=== PATIENT | female | born 1940 | race Caucasian/White ===

== ENCOUNTER 2016-07-01 17:44 | Observation (INO) | payer BC, MEDICARE ==
[2016-07-01 18:30] LABS: ABSOLUTE NEUTROPHIL COUNT 6.1 K/mm3 (1.8-7.7); BASO % 0.2 % (0.2-1.0); EOS % 0.1 % (0.9-2.9); HEMATOCRIT 35.6 % (37.0-47.0); HEMOGLOBIN 11.8 gm/l (12.0-16.0); IMM NEUT% 0.2 % (0-1); LYMPH # 1.3 (1.0-4.8); LYMPH % 14.6 % (15-45); MEAN CELL VOLUME 91.3 fl (81.0-99.0); MEAN CORPUSCULAR HEMOGLOBIN 30.3 pg (27.0-31.0); MEAN CORPUSCULAR HGB CONC 33.1 g/dl (33.0-37.0); MEAN PLATELET VOLUME 10.1 fl (7.4-10.4); MONO # 1.2 (0.0-0.8); MONO % 14.3 % (4-12); NEUT % 70.6 % (43-75); PLATELET COUNT 171 K/mm3 (130-400); RED CELL DISTRIBUTION WIDTH 12.3 % (11.5-14.5)
[2016-07-01 18:45] LABS: SPECIFIC GRAVITY 1.025 (1.001-1.030); URINE BILIRUBIN NEGATIVE (NEGATIVE); URINE BLOOD 2+ (NEGATIVE); URINE GLUCOSE (UA) NEGATIVE (NEGATIVE); URINE LEUKOCYTE ESTERASE NEGATIVE (NEGATIVE); URINE NITRITE NEGATIVE (NEGATIVE); URINE PROTEIN 1+ (NEGATIVE); URINE UROBILINOGEN NORMAL (0-1 mg/dl)
[2016-07-01 18:47] LABS: URINE APPEARANCE CLEAR; URINE COLOR DARK YELLOW
[2016-07-01 18:54] LABS: ALB/GLOB RATIO 1.2 (>1.0); ALBUMIN 3.7 gm/dL (3.5-5.7); CALCIUM 9.6 mg/dL (8.6-10.3)
[2016-07-01 18:54] LABS: URINE EPITHELIAL CELLS 0 /hpf; URINE MUCUS 2+; URINE RBC 0-2 /hpf; URINE WBC 0-2 /hpf
[2016-07-01 18:55] LABS: URINE BACTERIA 1+
[2016-07-01 18:56] LABS: TROPONIN I 0.04 ng/ml (0.0-0.06)
[2016-07-01 19:00] LABS: CKMB ISOENZYME 2.9 ng/ml (0.6-6.3)
--- NOTE | 2016-07-01 19:26 | CT ---
HEAD W/O CON: 07/01/2016 6:25 PM CLINICAL HISTORY: Weakness, difficulty ambulating. COMPARISON: 12/31/2005 TECHNIQUE: Contiguous axial 5 mm images from skull base to the vertex were obtained without IV contrast. Sagittal and coronal reformations with bone algorithm images were also obtained at this time. CT DI:: 51.7 DLP: 938.9 FINDINGS: Infarct: None Extra axial spaces: Normal in size and morphology for the patient's age. Hemorrhage: None. Ventricular system: Normal in size and morphology for the patient's age. Basal cisterns: Normal. Cerebral parenchyma: Continued moderate atrophy is present with small vessel occlusive changes in the periventricular white matter. Physiologic calcifications are noted within the right basal ganglia. Midline shift: None. Cerebellum: Normal. Brainstem: Normal. OTHER: Calvarium: Normal. Vascular system: Normal. Visualized Paranasal sinuses and Mastoid air cells: Clear. Visualized Orbits and regional soft tissues: Normal. IMPRESSION: No acute intracranial process. Moderate atrophy and small vessel occlusive changes are again noted. Report was uploaded to the electronic medical record at approximately 1922 hours on 07/01/2016
[2016-07-01] MEDS ORDERED: CEFTRIAXONE 1 GRAM DUPLEX 50 ML IV ONE (20:49)
[2016-07-01] MEDS ORDERED: BISACODYL 10 MG SUP PR PRN (21:48)
[2016-07-01] MEDS ORDERED: SODIUM CHLORIDE 0.9% 1,000 ML IV SCH (21:48)
[2016-07-01] MEDS ORDERED: MAGNESIUM HYDROXIDE 30 ML UDCUP PO PRN (21:48)
[2016-07-01] MEDS ORDERED: ACETAMINOPHEN 325 MG TABLET PO PRN (21:48)
[2016-07-01] MEDS ORDERED: BISACODYL 5 MG TABLET.EC PO PRN (21:48)
[2016-07-01] MEDS ORDERED: SODIUM CHLORIDE 0.9% 100 ML IV PRN (21:48)
[2016-07-01] MEDS ORDERED: BLISTEX LIPSTICK 1 EACH TP PRN (21:48)
[2016-07-01] MEDS ORDERED: MENTHOL/CETYLPYRD 1 EACH LOZENGE PO PRN (21:48)
[2016-07-01 21:50] VITALS: BMI 24.5
[2016-07-01] MEDS ORDERED: PUMP TUBING ONE (22:11)
[2016-07-01] MEDS: DIVALPROEX SODIUM 125 MG PO SCH (22:46)
[2016-07-01] MEDS: CLONAZEPAM 0.5 MG TABLET PO SCH (22:46)
[2016-07-01] MEDS: DOCUSATE SODIUM 100 MG CAPSULE PO SCH (22:47)
[2016-07-02 07:01] LABS: ABSOLUTE NEUTROPHIL COUNT 3.6 K/mm3 (1.8-7.7); EOS # 0.1 (0.0-0.5); EOS % 1.2 % (0.9-2.9); HEMATOCRIT 33.4 % (37.0-47.0); IMM NEUT% 0.5 % (0-1); LYMPH # 1.2 (1.0-4.8); LYMPH % 21.3 % (15-45); MEAN CELL VOLUME 92.3 fl (81.0-99.0); MEAN CORPUSCULAR HEMOGLOBIN 30.4 pg (27.0-31.0); MEAN CORPUSCULAR HGB CONC 32.9 g/dl (33.0-37.0); MEAN PLATELET VOLUME 9.8 fl (7.4-10.4); MONO # 0.7 (0.0-0.8); MONO % 12.7 % (4-12); NEUT % 64.3 % (43-75); PLATELET COUNT 143 K/mm3 (130-400); RED CELL DISTRIBUTION WIDTH 12.1 % (11.5-14.5)
--- NOTE | 2016-07-02 07:35 | HP ---
Rocio Lugo [id number] CHIEF COMPLAINT: Weakness. HISTORY OF PRESENT ILLNESS: The patient is a 76-year-old female with past medical history significant for dementia brought to the [facility] Emergency Department by her family due to concerns about increased weakness which started today. She has normally been ambulatory, but today had trouble walking without much more assistance than usually and had a period of being less coherent than usual as well as some diaphoresis. This occurred this afternoon around 4:30 and family brought her in for evaluation. Her workup in the emergency department was fairly unremarkable, but she did have some bacteriuria and was thought to have a urinary tract infection causing her symptoms. She was referred to the hospitalist service for observation due to the decline in her usual level of functioning. The patient recently moved to [facility] on June 26. Since the move she has been having some more difficulty with transfers and has recently been encouraged to use a four wheeled walker. Prior to that, she was independent at home with her , but her care needs have become progressively higher over the last year. REVIEW OF SYSTEMS: No possible given the patient's advanced state of dementia. PAST MEDICAL HISTORY: Significant for a remote history of coronary artery disease approximately 15 years ago described as mild. She was last hospitalized about 7 years ago due to side effects from Risperdal. She has had senile dementia for the past 8 years. She has a history of severe depression with anxiety and has had history of suicide attempts in the past. Her psychiatric illness has stabilized. Family notes that she has had hallucinations over the last 6 months, but they do not seem to distress the patient or cause behavioral disturbance. She has had a history of chronic essential hypertension and no other chronic medical problems. No prior history of stroke. She has had a little bit of rosacea according to her medical record. PAST SURGICAL HISTORY: Significant for a prior cholecystectomy and skin cancer removal. ALLERGIES: RISPERDAL. CURRENT MEDICATIONS: Consist of: 1. Abilify 15 mg every morning. 2. Enteric coated aspirin 81 mg daily. 3. Buspirone 7.5 mg daily and 15 mg at bedtime. 4. Calcium with vitamin D 500/200 units half a tablet twice a day. 5. Vitamin D 3000 units by mouth daily. 6. Celexa 40 mg by mouth daily. 7. Klonopin 0.25 mg by mouth twice daily. 8. Diltiazem extended release 360 mg at bedtime. 9. Depakote 125 mg twice daily plus 250 mg at bedtime. 10. Hydrochlorothiazide 12.5 mg by mouth daily. 11. Lisinopril 40 mg by mouth daily. 12. Tylenol 650 mg every 4 hours as needed for pain. 13. Dulcolax 10 mg as needed for constipation if no bowel movement after three days and sion-d-rwsrubry fails. 14. Nwxt-u-nubkxgmm 30 mL daily as needed for constipation manifested by no bowel movement in 3 days. 15. Imodium 2 to 4 mg as needed for diarrhea. CODE STATUS: Not been formerly documented. I attempted to discuss this with the family, but they were not comfortable completing a POLST form at this time. Her indicates that she would not want to be on tube feedings, but they are not ready to formerly make a decision about life support or advanced life support measures at this time. FAMILY HISTORY: Significant for a mother who had lupus and a father who had a myocardial infarction and coronary artery disease. SOCIAL HISTORY: Patient is . She has two children a son and a daughter who are both involved in her care and live locally. Her is present at the bedside and is adjusting to living alone at home since his has moved into [facility]. There is no history of tobacco use. She has had a history of drinking a small amount of wine daily, but does not do so any longer. Her primary care provider is Dr. Chris Oro as her former primary care provider, Dr. Kp Rosado has retired. PHYSICAL EXAMINATION: VITAL SIGNS: Showed temperature of 98.8, oxygen saturation 95% on room air, respiratory rate 18, pulse is 80, blood pressure was 150/67, body mass index was 24.5 with a weight of 73.1 kg. GENERAL: This is a well developed, well nourished elderly female in no acute distress. HEENT: Shows pupils equal, round, and reactive to light. Extraocular movements are intact. No oral lesions are present. NECK: Supple without lymphadenopathy or thyromegaly. LUNGS: Clear to auscultation bilaterally. CARDIOVASCULAR: Reveals a regular rate and rhythm without a murmur. ABDOMEN: Soft, nontender, nondistended with positive bowel sounds. EXTREMITIES: Show no peripheral edema. DIAGNOSTICS: A 12-lead EKG shows sinus rhythm with frequent supraventricular premature complexes. There is also evidence of a moderate intraventricular conduction delay rate of 91 beats per minute. I do not have any diagnostic imaging reports available. LABORATORY STUDIES: Showed a white blood cell count of 8.7, hemoglobin of 11.8, and a platelet count of 171,000. Chemistry profile shows sodium 138, potassium 3.7, chloride 97, carbon dioxide 31, BUN 30, creatinine 1.2, glucose 95. Liver function tests are normal. Cardiac enzymes are negative. Urinalysis shows concentrated urine, specific gravity of 1.025, 1+ protein, trace ketones, 2+ blood, 0-2 red cells, 0-2 white cells, 1+ bacteria and 0 epithelial cells, nitrite and leukocyte esterase are both negative. ASSESSMENT: The patient has generalized weakness, unclear etiology. She does have bacteriuria and this may represent a urinary tract infection causing her weakness. She also has senile dementia and her weakness may just be progression of this illness. She has a history of chronic essential hypertension and coronary artery disease as well as chronic depression with anxiety. These medical problems appear to be stable. She meets criteria for observation. She has been given Rocephin in the emergency department. A urine culture is pending. Will get physical therapy and occupational therapy to evaluate and treat the patient in the morning. Work with care management and anticipate likely return to her assisted living facility tomorrow if possible. Further treatment and recommendations will depend on her hospital course. Venous thromboembolism risk is considered low. JOB: [id number] CC: Dr. Chris Oro
[2016-07-02] MEDS: CITALOPRAM HYDROBROMIDE 20 MG TABLET PO SCH (09:09)
[2016-07-02] MEDS: HYDROCHLOROTHIAZIDE 12.5 MG CAP PO SCH (09:10)
[2016-07-02] MEDS: LISINOPRIL 20 MG TABLET PO SCH (09:10)
[2016-07-02] MEDS: ASPIRIN (ENTERIC COATED) 81 MG TABLET.EC PO SCH (09:10)
[2016-07-02] MEDS: DOCUSATE SODIUM 100 MG CAPSULE PO SCH ×2 (09:10→20:04)
[2016-07-02] MEDS: VITAMIN D3 1,000 UNITS CAP.LIQ PO SCH (09:10)
[2016-07-02] MEDS: BUSPIRONE HCL 5 MG TABLET PO SCH (09:11)
[2016-07-02] MEDS: DIVALPROEX SODIUM 125 MG PO SCH ×2 (09:12→20:24)
[2016-07-02] MEDS: ARIPIPRAZOLE 5 MG TABLET PO SCH (09:12)
[2016-07-02] MEDS: CLONAZEPAM 0.5 MG TABLET PO SCH ×2 (09:12→20:21)
--- NOTE | 2016-07-02 10:59 | PDOC36 ---
Provider Note Subject: Telemetry showing runs of SVT(suspect Atrial Fibrillation) with rates up to 150s. Note: Status changed to inpatient pending workup and control of tachycardia.
--- NOTE | 2016-07-02 13:51 | PDOC43 ---
- Subjective Chief Complaint: Weakness Subjective: Reports Tolerating Diet Well, Reports Adequate Oral Intake, Denies Shortness of Breath, Denies Cough, Denies Chest Pain, Denies Abdominal Pain, Denies Nausea, Denies Vomiting, Denies Fever, Denies Chills - Objective Vital Signs Temperature 98.2 F 07/02/16 12:59 Pulse Rate 75 07/02/16 12:59 Respiratory Rate 16 07/02/16 12:59 Blood Pressure 113/52 07/02/16 12:59 O2 Saturation by Pulse Oximetry 96 07/02/16 12:59 Oxygen Delivery Method Room Air Oxygen Flow Rate 0 General: Alert, Cooperative, No Acute Distress HEENT: Atraumatic Lungs: Clear to Auscultation Bilaterally Cardiovascular: Regular Rate and Rhythm Abdomen: Soft, Normal Bowel Sounds, Non-Distended, No Tenderness Extremities: No Edema Psych/Mental Status: Flat Affect Laboratory Tests 07/02/16 06:30 WBC 5.7 Hgb 11.0 L Hct 33.4 L Plt Count 143 Sodium 141 Potassium 3.6 Chloride 100 Carbon Dioxide 35 H Anion Gap 10 BUN 24 Creatinine 1.0 Glucose 89 Current Medications: Current meds reviewed in EMR. - Problems: Assessment/Plan (1) Weakness Status: Acute Assessment/Plan: Non-specific generalized weakness in pt with advanced dementia and recent move. Suspect mild dehydration related to decreased po intake. Borderline UA at admit but doubt true UTI- on abx and awaiting cx results. Appears at/near baseline this AM. Supportive care. Will need SNF and developer designer higher level of care. (2) Atrial fibrillation Status: Acute Assessment/Plan: Has had occ paroxysmal a fib on tele monitor since admit. Asymptomatic. Given med list (high dose diltiazen and ASA) I suspect this is not a new dx, though family does not remember the dx. Will get records from [facility] geriatrics clinic ( primary MD up until 1 yr ago) to see if chronic. Family indicates desire to avoid any invasive procedures and higher risk meds. Will con't on current regimen for now. (3) Dementia Qualifiers: Dementia type: unspecified type Status: Chronic Assessment/Plan: Advanced by report. Suspect advancing dz as cause of weakness. Will need higher level of care. Con't current med regimen. (4) Depression Status: Chronic Assessment/Plan: Long h/o major depression/anxiet with multiple episodes of SI. Stable on current regimen developer designer. Check depakote level. Follow. (5) CAD (coronary artery disease) Qualifiers: Coronary Disease-Associated Artery/Lesion type: unspecified vessel or lesion type Associated angina: without angina Status: Chronic Assessment/Plan: Distant h/o mild dz as per family. No evidence of ACS. (6) HTN (hypertension) Qualifiers: Hypertension type: essential hypertension Qualifier Code: (I10) Essential (primary) hypertension Status: Chronic Assessment/Plan: Con't current regimen. VTE Prophylaxis: Ambulatory. Disposition: Anticipate d/c to SNF in AM.
[2016-07-02] MEDS ORDERED: PUMP TUBING ONE (20:16)
[2016-07-02] MEDS ORDERED: CEFTRIAXONE 1 GRAM DUPLEX 1 G in Premix (D5W) 50 ml 1 EACH IV SCH (21:00)
[2016-07-02] MEDS ORDERED: DILTIAZEM HCL CD 180 MG CAPSULE PO SCH (22:17)
[2016-07-02] MEDS ORDERED: BUSPIRONE HCL 5 MG TABLET PO SCH (22:17)
[2016-07-02] MEDS ORDERED: DIVALPROEX SODIUM 250 MG TABLET.DR PO SCH (22:18)
[2016-07-02 22:28] LABS: TROPONIN I 0.02 ng/ml (0.0-0.06)
[2016-07-02 22:33] LABS: CKMB ISOENZYME 2.8 ng/ml (0.6-6.3)
[2016-07-03] MEDS: BUSPIRONE HCL 5 MG TABLET PO SCH (09:17)
[2016-07-03] MEDS: LISINOPRIL 20 MG TABLET PO SCH (09:18)
[2016-07-03] MEDS: CLONAZEPAM 0.5 MG TABLET PO SCH (09:19)
[2016-07-03] MEDS: VITAMIN D3 1,000 UNITS CAP.LIQ PO SCH (09:19)
[2016-07-03] MEDS: CITALOPRAM HYDROBROMIDE 20 MG TABLET PO SCH (09:19)
[2016-07-03] MEDS: ASPIRIN (ENTERIC COATED) 81 MG TABLET.EC PO SCH (09:19)
[2016-07-03] MEDS: ARIPIPRAZOLE 5 MG TABLET PO SCH (09:20)
[2016-07-03] MEDS: HYDROCHLOROTHIAZIDE 12.5 MG CAP PO SCH (09:20)
[2016-07-03] MEDS: DIVALPROEX SODIUM 125 MG PO SCH (09:21)
[2016-07-03 10:52] VITALS: BP 101/41
--- NOTE | 2016-07-03 12:03 | DS ---
Rocio Lugo [id number] DATE OF ADMISSION: July 01, 2016 DATE OF DISCHARGE: July 03, 2016 DISCHARGE DIAGNOSES: 1. Generalized weakness. 2. Senile dementia. 3. Chronic essential hypertension. 4. Chronic depression with anxiety. 5. Stable coronary artery disease involving the wainwright vessels without angina. 6. Paroxysmal atrial fibrillation. TO SUMMARIZE THE ADMISSION AND HOSPITAL COURSE: The patient is a 76-year-old female with medical problems as listed above who presented with increasing weakness and chills. She normally is independent with activity, but developed such severe weakness that she is requiring two person assistance. Workup in the emergency department showed stable vital signs. EKG showed sinus rhythm with frequent supraventricular premature complexes along with moderate intraventricular conduction delay. White blood cell count was normal at 8.7 with normal electrolytes. Creatinine stable at 1.2. Urine showed ketonuria and a high specific gravity consistent with dehydration. There was also 1+ bacteria. She was referred to the hospitalist service. She initially was placed under observation and on telemetry she had a culture of urine performed and was treated empirically with Rocephin. Her urine culture remains negative to date. She has had some persistent weakness and was felt to be a good candidate for rehab at [facility] who has accepted her. She has remained afebrile throughout her stay with stable vital signs. On telemetry she was noted to have runs of supraventricular tachycardia felt to be caused by paroxysmal atrial fibrillation. Generally, her rate has been in the 60's and 70's, however, and no treatments were needed for these paroxysmal episodes of tachycardia. She is felt to be medically stable for discharge to shelter care. Her code status remains undetermined. I did review the POLST form with the family and they have not yet completed that, so she would remain a full code at this point. PHYSICAL EXAMINATION: VITALS: At discharge show a body mass index of 24.5, weight of 73.1 kg, temperature 98.0, pulse 63, blood pressure 101/41, respirations 20, oxygen saturation is 96% on room air. GENERAL: This is a elderly female in no acute distress. HEENT: Shows pupils equal, round, and reactive to light. Extraocular movements are intact. No oral lesions are present. NECK: Supple without lymphadenopathy or thyromegaly. LUNGS: Clear to auscultation bilaterally. CARDIOVASCULAR: Reveals a regular rate and rhythm currently without a murmur. EXTREMITIES: Show no edema. NEUROLOGIC: Nonfocal. She is alert and oriented x1. LABORATORY STUDIES: She did have a TSH level and a B12 level which were normal. Follow up chemistry profile remained normal. Creatinine down to 1.0 after some hydration. Her follow up CBC showed a normal white count, hemoglobin of 11.0, and a platelet count of 143,000. DISPOSITION: [facility] for shelter care. She will get physical therapy and occupational therapy, evaluate and treat. CODE STATUS: Remains full code by default pending further decision from the family. ALLERGIES: DOCUMENTED TO RISPERIDONE. DISCHARGE INSTRUCTIONS: She will get skin care, bowel care, podiatry care per house protocol. She will get a flu vaccine and a pneumonia vaccine if no prior vaccinations can be found. She will get a PPD as required by the facility. DISCHARGE MEDICATIONS: Include her admission medications without changes, these include: 1. Clonazepam 0.5 mg tablet, she takes a half tablet twice daily scheduled. 2. Abilify 15 mg ever morning. 3. Enteric coated aspirin 81 mg by mouth daily. 4. Buspirone 7.5 mg in the morning and 15 mg at bedtime. 5. Calcium with vitamin D 500/200 units half a tablet twice daily. 6. Vitamin D3 1000 units by mouth daily. 7. Celexa 40 mg by mouth daily. 8. Diltiazem extended release 360 mg at bedtime. 9. Depakote 125 mg twice daily with an extra dose of 250 mg in the evening. 10. Hydrochlorothiazide 12.5 mg daily. 11. Lisinopril 40 mg daily. 12. Tylenol 650 mg every 4 hours as needed for pain. 13. She came in with bowel care standing orders including Dulcolax 10 mg suppository as needed if no bowel movement in 3 days and no response to Mhyw-br-Wdyksrcm. 14. Fffu-bk-Rpffxayo 30 mL by mouth daily as needed for now bowel movement in 3 days. 15. Imodium 4 mg initially for diarrhea followed by 2 mg every 4 hours for ongoing symptoms of diarrhea should they develop. FOLLOW UP: She will follow up with her primary care provider, Dr. Chris Oro on July 07 at 10:15 a.m. Also note she did have a CT of the brain showing no acute stroke with small vessel ischemic changes and atrophy seen. JOB: [id number] E/trr CC: Dr. Chris Oro
== END 2016-07-03 15:05 ==
LOC: ED 17:44 → MS 20:55 → OBSVTOIN 07-02 10:57 → INTOOBSV 07-02 10:57
PROVIDERS: ADMIT Family Medicine; ATTEND Family Medicine
DX: N39.0 Urinary tract infection, site not specified (principal); R53.1 Weakness; R82.71 Bacteriuria; F03.90 Unspecified dementia, unspecified severity, without behavioral disturbance, psychotic disturbance, mood disturbance, and anxiety; I25.10 Atherosclerotic heart disease of native coronary artery without angina pectoris; F32.9 Major depressive disorder, single episode, unspecified; F41.9 Anxiety disorder, unspecified; I48.0 Paroxysmal atrial fibrillation
CPT/HCPCS: 85025 ×2; 82553 ×2; 87086; 80048; 80053; 84443; 84484 ×2; 81001; 80164; 82607; 36415; 70450; 97116; 97530; 97162; 97166; 99284; 96365; 51701; 93005; 99285; A9270 ×20; J7030; J7050; J0696 ×2; G0378 ×2